=== PATIENT | female | born 1990 | race Caucasian/White ===

== ENCOUNTER 2023-05-03 08:59 | Inpatient (IN) | payer OTHER ==
[2023-05-03] MEDS ORDERED: Lidocaine 1% 50 ML MDV INJECT PRN (09:55)
[2023-05-03] MEDS ORDERED: Acetaminophen 325 MG Tab PO PRN (09:55)
[2023-05-03] MEDS ORDERED: Ondansetron 4 MG/2 ML SDV IVPUSH PRN (09:55)
[2023-05-03] MEDS ORDERED: Nalbuphine HCl 10 MG/ 1ML Amp IVPUSH PRN (09:55)
[2023-05-03] MEDS ORDERED: Sodium Chloride 0.9% 10 ML Syringe FLUSH PRN (09:55)
[2023-05-03] MEDS ORDERED: Oxytocin/Lactated Ringers 30 UNIT/500 ML BAG IV SCH ×2 (10:00)
[2023-05-03 10:24] LABS: BASOPHILS PERCENT AUTO 0.2 % (0.0-1.0); EOSINOPHILS PERCENT AUTO 0.1 % (0.0-6.0); HEMOGLOBIN 14.2 gm/dl (12.0-16.0); IMMATURE GRAN ABSOLUTE AUTO 0.06 K/mm3 (0.00-0.05); IMMATURE GRAN PERCENT AUTO 0.5 % (0.0-0.4); LYMPHOCYTES ABSOLUTE AUTO 1.7 K/mm3 (1.0-4.8); LYMPHOCYTES PERCENT AUTO 13.7 % (24.0-44.0); MEAN CORPUSCULAR HGB CONC 33.8 g/dl (32.0-36.0); MEAN CORPUSCULAR VOLUME 88.8 fl (83.0-99.0); MEAN PLATELET VOLUME 9.3 fl (9.4-12.3); MONOCYTES ABSOLUTE AUTO 0.6 K/mm3 (0.0-0.8); MONOCYTES PERCENT AUTO 4.9 % (0.0-8.0); NEUTROPHILS ABSOLUTE AUTO 10.2 K/mm3 (1.8-7.7); NEUTROPHILS PERCENT AUTO 80.6 % (41.0-71.0); PLATELET COUNT,PLT 244 K/mm3 (150-400); RED BLOOD CELL COUNT 4.73 M/mm3 (4.10-5.30)
[2023-05-03 10:47] LABS: CREATININE 0.9 mg/dL (0.55-1.02); EST CRCL DRUG DOSING (CG) 92.05 mL/min
[2023-05-03 11:18] LABS: CREATININE,URINE RAND 139.8 mg/dL (30.0-125.0); PROTEIN CREATININE RATIO,URINE 395.6 mg/g (0-149); PROTEIN,URINE RANDOM 55.3 mg/dL (0.0-11.8)
[2023-05-03] MEDS: Lactated Ringers 1,000 ML IV SCH ×3 (11:43→18:20)
[2023-05-03] MEDS ORDERED: fentaNYL 100 MCG/2 ML SDV EPIDUR PRN (14:38)
[2023-05-03] MEDS ORDERED: Bupivacaine/fentaNYL/NS 100 ML Bag EPIDUR PRN (14:38)
[2023-05-03] MEDS ORDERED: diphenhydrAMINE 50 MG/ML SDV IVPUSH PRN (14:38)
[2023-05-03] MEDS ORDERED: ePHEDrine 50 MG/ML SDV IVPUSH PRN (14:38)
[2023-05-03] MEDS ORDERED: Sodium Chloride 0.9% 10 ML Syringe FLUSH SCH (21:00)
[2023-05-04] MEDS ORDERED: Docusate Sodium 100 MG Cap PO PRN (02:05)
[2023-05-04] MEDS ORDERED: Ibuprofen 600 MG Tab PO PRN (02:05)
[2023-05-04] MEDS ORDERED: Acetaminophen 325 MG Tab PO PRN (02:05)
[2023-05-04] MEDS ORDERED: Benzocaine/Menthol 20%-0.5% Spray 78 GM Cannister TOP PRN (02:05)
[2023-05-04] MEDS ORDERED: Witch Hazel Medicated Pads 40/Jar TOP PRN (02:05)
== END 2023-05-05 11:10 | disposition home or self-care (01) | DRG 807 ==
LOC: JD.OBCHECK 08:59 → JD.OB 09:04 → JD.OBCHECK 09:56 → JD.OB 10:07 → OBSVTOIN 23:11 → JD.OB 23:12
PROVIDERS: ADMIT Obstetrics & Gynecology; ATTEND Obstetrics & Gynecology
PROC: 10E0XZZ Delivery of Products of Conception, External Approach (ICD-10-PCS; principal; 2023-05-03)
PROC: 0KQM0ZZ Repair Perineum Muscle, Open Approach (ICD-10-PCS; 2023-05-03)
PROC: 3E033VJ Introduction of Other Hormone into Peripheral Vein, Percutaneous Approach (ICD-10-PCS; 2023-05-03)
PROC: 3E0R3BZ Introduction of Anesthetic Agent into Spinal Canal, Percutaneous Approach (ICD-10-PCS; 2023-05-03)
PROC: 00HU33Z Insertion of Infusion Device into Spinal Canal, Percutaneous Approach (ICD-10-PCS; 2023-05-03)
DX: O42.02 Full-term premature rupture of membranes, onset of labor within 24 hours of rupture (principal); Z37.0 Single live birth; O14.94 Unspecified pre-eclampsia, complicating childbirth; O70.1 Second degree perineal laceration during delivery; Z3A.39 39 weeks gestation of pregnancy; Z98.890 Other specified postprocedural states; Z90.89 Acquired absence of other organs
CPT/HCPCS: 36415; 51702; 59025; 59409; 82565; 82570; 84112; 84156; 84450; 84460; 85025; 86592; 86850; 86900; 86901; A9270-GY; J3490; J7120; J7999

== ENCOUNTER 2025-04-11 08:32 | Inpatient (IN) | payer OTHER ==
[2025-04-11] MEDS ORDERED: Sodium Chloride 0.9% 10 ML Syringe FLUSH PRN ×3 (09:09→12:51)
[2025-04-11] MEDS ORDERED: Oxytocin/0.9 % Sodium Chloride 30 UNIT/500 ML BAG IV SCH (09:15)
[2025-04-11] MEDS: Lactated Ringers 1,000 ML IV SCH ×2 (09:16→10:16)
[2025-04-11 09:39] LABS: BASOPHILS ABSOLUTE AUTO 0.0 K/mm3 (0.0-0.2); BASOPHILS PERCENT AUTO 0.2 % (0.0-1.0); EOSINOPHILS ABSOLUTE AUTO 0.1 K/mm3 (0.0-0.4); EOSINOPHILS PERCENT AUTO 0.5 % (0.0-6.0); IMMATURE GRAN ABSOLUTE AUTO 0.07 K/mm3 (0.00-0.05); IMMATURE GRAN PERCENT AUTO 0.7 % (0.0-0.4); LYMPHOCYTES ABSOLUTE AUTO 1.7 K/mm3 (1.0-4.8); LYMPHOCYTES PERCENT AUTO 18.3 % (24.0-44.0); MEAN PLATELET VOLUME 9.9 fl (9.4-12.3); MONOCYTES ABSOLUTE AUTO 0.6 K/mm3 (0.0-0.8); MONOCYTES PERCENT AUTO 6.0 % (0.0-8.0); NEUTROPHILS ABSOLUTE AUTO 7.1 K/mm3 (1.8-7.7); NEUTROPHILS PERCENT AUTO 74.3 % (41.0-71.0); NRBC ABSOLUTE 0.00 (0.00-0.02); NRBC PERCENT 0.0 % (0.0-0.2); PLATELET COUNT,PLT 191 K/mm3 (150-400); RED BLOOD CELL COUNT 4.31 M/mm3 (4.10-5.30); WHITE BLOOD CELL COUNT,WBC 9.51 K/mm3 (3.9-11.3)
[2025-04-11] MEDS ORDERED: ePHEDrine 50 MG/ML SDV ONE (09:55)
[2025-04-11] MEDS ORDERED: Morphine PF 10 MG/10 ML SDV ONE (09:55)
[2025-04-11] MEDS ORDERED: diphenhydrAMINE 50 MG/ML SDV IVPUSH PRN (09:57)
[2025-04-11] MEDS ORDERED: Ondansetron 4 MG/2 ML SDV IVPUSH PRN ×2 (09:57→21:10)
[2025-04-11] MEDS ORDERED: fentaNYL 100 MCG/2 ML SDV IVPUSH PRN (09:57)
[2025-04-11] MEDS: ceFAZolin 1 GM in Water For Injection, Sterile 10 ML IVPUSH ONE (10:00)
[2025-04-11] MEDS: ceFAZolin 2 GM in Water For Injection, Sterile 20 ML IVPUSH ONE ×2 (10:00→11:54)
[2025-04-11 10:04] LABS: ALANINE AMINOTRANSFERASE,ALT 18.0 U/L (14-59); ASPARTATE AMNIOTRANSFERASE,AST 20.0 U/L (15-37); BLOOD UREA NITROGEN,BUN 10.0 mg/dL (7-18); CREATININE 0.6 mg/dL (0.55-1.02); EST CRCL DRUG DOSING (CG) 126.05 mL/min; ESTIMATED GFR 119.0 mL/min (>60); LACTATE DEHYDROGENASE,LDH 147.0 U/L (81-234)
[2025-04-11] MEDS: Citric Acid/Sodium Citrate Solution 30 ML Cup PO ONE (10:08)
[2025-04-11 10:15] LABS: CREATININE,URINE RAND 45.3 mg/dL (30.0-125.0); PROTEIN CREATININE RATIO,URINE 417.2 mg/g (0-149); PROTEIN,URINE RANDOM 18.9 mg/dL (0.0-11.8)
[2025-04-11] MEDS ORDERED: Lactated Ringers 1,000 ML ONE (10:32)
[2025-04-11] MEDS ORDERED: Phenylephrine 1% 10 MG/ML SDV ONE (10:40)
[2025-04-11] MEDS ORDERED: Oxytocin/0.9 % Sodium Chloride 30 UNIT/500 ML BAG IV ONE (10:49)
[2025-04-11] MEDS ORDERED: Ketorolac 30 MG/ML SDV ONE (11:08)
[2025-04-11 11:40] LABS: MEAN PLATELET VOLUME 10.3 fl (9.4-12.3); NRBC ABSOLUTE 0.00 (0.00-0.02); NRBC PERCENT 0.0 % (0.0-0.2); PLATELET COUNT,PLT 190 K/mm3 (150-400); RED BLOOD CELL COUNT 3.92 M/mm3 (4.10-5.30); WHITE BLOOD CELL COUNT,WBC 11.42 K/mm3 (3.9-11.3)
[2025-04-11 12:01] LABS: INR 0.95
[2025-04-11 12:02] LABS: PTT,PARTIAL THROMBOPLSTIN TIME 23.9 SECONDS (21.7-31.4)
[2025-04-11] MEDS ORDERED: Naloxone 0.4 MG/ML SDV IVPUSH PRN (12:51)
[2025-04-11] MEDS ORDERED: ePHEDrine 50 MG/ML SDV IVPUSH PRN (12:51)
[2025-04-11] MEDS: Ondansetron 4 MG/2 ML SDV IV PRN (16:07)
[2025-04-11] MEDS: Ketorolac 30 MG/ML SDV IVPUSH SCH (17:39)
[2025-04-11 20:03] LABS: MEAN PLATELET VOLUME 9.5 fl (9.4-12.3); NRBC ABSOLUTE 0.00 (0.00-0.02); NRBC PERCENT 0.0 % (0.0-0.2); PLATELET COUNT,PLT 169 K/mm3 (150-400); RED BLOOD CELL COUNT 3.75 M/mm3 (4.10-5.30); WHITE BLOOD CELL COUNT,WBC 10.85 K/mm3 (3.9-11.3)
[2025-04-11] MEDS ORDERED: Sodium Chloride 0.9% 10 ML Syringe FLUSH SCH ×2 (21:00)
[2025-04-11] MEDS: Lactated Ringers 1,000 ML IV ONE (21:31)
[2025-04-11] MEDS: diphenhydrAMINE 50 MG/ML SDV IVPUSH PRN (23:05)
[2025-04-12] MEDS: Lactated Ringers 500 ML IV ONE (05:05)
[2025-04-12] MEDS ORDERED: Lactated Ringers 1,000 ML IV SCH (05:18)
[2025-04-12 05:51] LABS: MEAN PLATELET VOLUME 9.5 fl (9.4-12.3); NRBC ABSOLUTE 0.00 (0.00-0.02); NRBC PERCENT 0.0 % (0.0-0.2); PLATELET COUNT,PLT 172 K/mm3 (150-400); RED BLOOD CELL COUNT 3.42 M/mm3 (4.10-5.30); WHITE BLOOD CELL COUNT,WBC 9.05 K/mm3 (3.9-11.3)
[2025-04-12] MEDS: Lactated Ringers 1,000 ML IV SCH (09:15)
== END 2025-04-14 10:50 | disposition home or self-care (01) | DRG 788 ==
LOC: JD.OB 08:32 → OBSVTOIN 09:10 → JD.OB 09:10 → EDSTATUS 04-18 07:30
PROVIDERS: ADMIT Obstetrics & Gynecology; ATTEND Obstetrics & Gynecology
PROC: 10D00Z1 Extraction of Products of Conception, Low, Open Approach (ICD-10-PCS; principal; 2025-04-11 12:00)
DX: O99.214 Obesity complicating childbirth (principal); Z3A.36 36 weeks gestation of pregnancy; Z37.0 Single live birth; Z90.49 Acquired absence of other specified parts of digestive tract; Z98.890 Other specified postprocedural states; Z79.899 Other long term (current) drug therapy
CPT/HCPCS: 01961; 36415; 59025; 82565; 82570; 83615; 84156; 84450; 84460; 84520; 84550; 85025; 85027; 85384; 85610; 85730; 86592; 86850; 86900; 86901; 94762; A4216; A9270-GY; J0690; J1200; J1885; J2274; J2371; J2405; J2765; J3490; J7120; J7121; J7999

== ENCOUNTER 2025-04-15 19:38 | Emergency (ER) | payer OTHER ==
[2025-04-15] MEDS ORDERED: Sodium Chloride 0.9% 10 ML Syringe FLUSH PRN (20:06)
[2025-04-15 20:26] LABS: BASOPHILS ABSOLUTE AUTO 0.0 K/mm3 (0.0-0.2); BASOPHILS PERCENT AUTO 0.3 % (0.0-1.0); EOSINOPHILS ABSOLUTE AUTO 0.2 K/mm3 (0.0-0.4); EOSINOPHILS PERCENT AUTO 1.6 % (0.0-6.0); IMMATURE GRAN ABSOLUTE AUTO 0.07 K/mm3 (0.00-0.05); IMMATURE GRAN PERCENT AUTO 0.7 % (0.0-0.4); LYMPHOCYTES ABSOLUTE AUTO 3.1 K/mm3 (1.0-4.8); LYMPHOCYTES PERCENT AUTO 31.4 % (24.0-44.0); MEAN PLATELET VOLUME 9.0 fl (9.4-12.3); MONOCYTES ABSOLUTE AUTO 0.7 K/mm3 (0.0-0.8); MONOCYTES PERCENT AUTO 6.9 % (0.0-8.0); NEUTROPHILS ABSOLUTE AUTO 5.7 K/mm3 (1.8-7.7); NEUTROPHILS PERCENT AUTO 59.1 % (41.0-71.0); NRBC ABSOLUTE 0.00 (0.00-0.02); NRBC PERCENT 0.0 % (0.0-0.2); PLATELET COUNT,PLT 258 K/mm3 (150-400); RED BLOOD CELL COUNT 3.57 M/mm3 (4.10-5.30); WHITE BLOOD CELL COUNT,WBC 9.70 K/mm3 (3.9-11.3)
[2025-04-15] MEDS: Ondansetron 4 MG Tab.DIS PO ONE (20:35)
[2025-04-15 20:50] LABS: APPEARANCE,URINE CLEAR (Clear); GLUCOSE,URINE NEGATIVE (Negative); OCCULT BLOOD,URINE 3+ (Negative)
[2025-04-15 20:54] LABS: A/G RATIO 0.6 (1-2); ALANINE AMINOTRANSFERASE,ALT 52.0 U/L (14-59); ASPARTATE AMNIOTRANSFERASE,AST 52.0 U/L (15-37); BILIRUBIN TOTAL 0.3 mg/dL (0.2-1.0); BLOOD UREA NITROGEN,BUN 12.0 mg/dL (7-18); CARBON DIOXIDE,CO2 26.0 mEq/L (21-32); CHLORIDE,CL 108.0 mEq/L (98-107); CREATININE 0.7 mg/dL (0.55-1.02); EST CRCL DRUG DOSING (CG) 120.15 mL/min; ESTIMATED GFR 115.0 mL/min (>60); GLUCOSE RANDOM 102.0 mg/dL (70-99); LACTATE DEHYDROGENASE,LDH 189.0 U/L (81-234); POTASSIUM,K 3.8 mEq/L (3.5-5.1); PROTEIN TOTAL,TP 6.0 g/dl (6.4-8.2); SODIUM,NA 144.0 mEq/L (136-145)
[2025-04-15 21:09] LABS: CREATININE,URINE RAND 21.3 mg/dL (30.0-125.0); PROTEIN CREATININE RATIO,URINE 657.3 mg/g (0-149); PROTEIN,URINE RANDOM 14.0 mg/dL (0.0-11.8)
== END 2025-04-15 22:48 | disposition home or self-care (01) ==
LOC: JD.ED 19:38
DX: O90.89 Other complications of the puerperium, not elsewhere classified (principal); R11.0 Nausea; R42 Dizziness and giddiness; Z91.048 Other nonmedicinal substance allergy status; Z79.899 Other long term (current) drug therapy
CPT/HCPCS: 36415; 80053; 81001; 82570; 83615; 83735; 84156; 85025; 99284; A9270